=== PATIENT | female | born 1945 | race Caucasian/White ===

== ENCOUNTER → 2016-08-10 | Outpatient (CLI) | payer MEDICARE, OTHER | END | disposition home or self-care (01) | LOC: RAD.S 12:31 | DX: G20 Parkinson's disease (principal); G31.9 Degenerative disease of nervous system, unspecified ==

== ENCOUNTER → 2016-09-19 | Outpatient (CLI) | payer MEDICARE, OTHER | END | disposition home or self-care (01) | LOC: RAD.S 08:55 | DX: R13.12 Dysphagia, oropharyngeal phase (principal) ==